=== PATIENT | female | born 1995 | race Caucasian/White ===

== ENCOUNTER 2024-05-22 00:14 | Day surgery (SDC) | payer BC ==
[2024-05-22 00:42] VITALS: BMI 31.7
[2024-05-22] MEDS ORDERED: hydrALAZINE 20 MG/ML VIAL SLOW IVP PRN (01:21)
[2024-05-22] MEDS: metroNIDAZOLE 500 MG TAB PO SCH (05:00)
== END 2024-05-22 05:03 | disposition home or self-care (01) ==
LOC: CSHLD/OP 00:14
PROVIDERS: ATTEND Advanced Practice Midwife
DX: O47.1 False labor at or after 37 completed weeks of gestation (principal); O23.593 Infection of other part of genital tract in pregnancy, third trimester; B96.89 Other specified bacterial agents as the cause of diseases classified elsewhere; Z79.899 Other long term (current) drug therapy; Z88.5 Allergy status to narcotic agent; Z3A.38 38 weeks gestation of pregnancy
CPT/HCPCS: 87480; 87510; 87660; 99284

== ENCOUNTER 2024-05-23 08:04 | Day surgery (SDC) | payer BC ==
[2024-05-23] MEDS ORDERED: hydrALAZINE 20 MG/ML VIAL SLOW IVP PRN (08:45)
[2024-05-23 14:49] VITALS: BMI 37.0
[2024-05-23] MEDS: Morphine 4 MG/ML VIAL IM SCH (15:15)
[2024-05-23] MEDS: Promethazine HCl 25 MG/ML VIAL IM PRN (15:16)
== END 2024-05-23 15:55 | disposition home or self-care (01) ==
LOC: CSHLD/OP 08:04
PROVIDERS: ATTEND Obstetrics & Gynecology
DX: O47.1 False labor at or after 37 completed weeks of gestation (principal); O46.93 Antepartum hemorrhage, unspecified, third trimester; O23.593 Infection of other part of genital tract in pregnancy, third trimester; B96.89 Other specified bacterial agents as the cause of diseases classified elsewhere; O99.013 Anemia complicating pregnancy, third trimester; Z79.899 Other long term (current) drug therapy; Z88.5 Allergy status to narcotic agent; Z3A.38 38 weeks gestation of pregnancy
CPT/HCPCS: J2272; J2550

== ENCOUNTER 2024-05-24 02:14 | Inpatient (IN) | payer BC ==
[2024-05-24] MEDS ORDERED: Promethazine HCl 25 MG/ML VIAL IM PRN (02:20)
[2024-05-24] MEDS ORDERED: Diphenoxylate HCl/Atropine Tablet PO PRN ×2 (02:20)
[2024-05-24] MEDS ORDERED: Carboprost 250 MCG/ML AMP IM PRN (02:20)
[2024-05-24] MEDS ORDERED: Methylergonovine 0.2 MG/ML VIAL IM PRN (02:20)
[2024-05-24] MEDS ORDERED: Ondansetron PF 4 MG/2 ML Vial IVP PRN (02:20)
[2024-05-24] MEDS ORDERED: Misoprostol 200 MCG TAB PR PRN (02:20)
[2024-05-24] MEDS ORDERED: Lidocaine 1% (PF) 30 ML VIAL SC PRN (02:20)
[2024-05-24] MEDS ORDERED: hydrALAZINE 20 MG/ML VIAL SLOW IVP PRN (02:20)
[2024-05-24] MEDS ORDERED: Tranexamic Acid 1,000 MG/10 ML VIAL IVP PRN (02:20)
[2024-05-24] MEDS ORDERED: Lactated Ringer's 1,000 ML IV SCH (02:30)
[2024-05-24] MEDS ORDERED: Oxytocin 30 units/NS 500 ML 500 ML IV SCH (02:30)
[2024-05-24 02:48] LABS: Hematocrit 42.8 % (34.9-44.5); Hemoglobin 14.2 g/dL (12.0-15.5); Mean Corpuscular HGB CONC 33.2 g/dL (32.0-36.0); Mean Corpuscular Hemoglobin 29.6 pg (27.0-33.0); Mean Corpuscular Volume 89.4 fL (81.6-98.3); Platelet Count 290 10x3/uL (150-450); RBC Distribution Width 16.6 % (11.5-14.5); Red Blood Cell (RBC) Count 4.79 10x6/uL (3.90-5.03); White Blood Cell (WBC) Count 23.8 10x3/uL (3.5-10.5)
[2024-05-24] MEDS: Lidocaine 1% (PF) 30 ML VIAL ONE (02:55)
[2024-05-24] MEDS: Oxytocin 30 units/NS 500 ML 500 ML ONE ×2 (03:00→04:48)
[2024-05-24 03:15] LABS: HBsAg Index 0.17 S/CO (0-0.99); Hep B Surf Ag - L&D Non-Reactive S/CO (NonReactive); Syphilis Antibody Nonreactive (Nonreactive); Syphilis Antibody Index 0.04 S/CO (<1.00 Non-Reactive)
[2024-05-24 04:36] VITALS: BMI 33.7
[2024-05-24] MEDS: Ibuprofen 800 MG TAB PO PRN (04:47)
[2024-05-24] MEDS ORDERED: Milk Of Magnesia 30 ML UDCUP PO PRN (07:34)
[2024-05-24] MEDS ORDERED: Boostrix 0.5 ML (Tdap) VIAL (>/=7 yrs of age) IM ONE (07:34)
[2024-05-24] MEDS ORDERED: Bisacodyl 10 MG SUPP PR PRN (07:34)
[2024-05-24] MEDS: Ferrous Sulfate 325 MG TAB PO SCH (08:49)
[2024-05-24] MEDS: Docusate 100 MG CAP PO PRN (09:14)
[2024-05-24] MEDS ORDERED: HYDROcodone/Acetaminophen 5/325 mg Tablet PO PRN (11:00)
[2024-05-24] MEDS ORDERED: Preparation H Ointment 28 GM TUBE TOP PRN (11:22)
[2024-05-24] MEDS: Acetaminophen 500 MG TAB PO PRN (12:20)
[2024-05-24] MEDS: Benzocaine-Menthol 82.5 ML CAN TOP PRN (12:22)
[2024-05-25] MEDS ORDERED: Witch Hazel 100 PAD JAR TOP PRN (08:01)
[2024-05-25] MEDS: Prenatal Vitamin 1 TAB PO SCH (08:22)
[2024-05-26 08:04] VITALS: BP 116/76; TEMP 98.3
== END 2024-05-26 15:43 | disposition home or self-care (01) | DRG 807 ==
LOC: CSHLD/OP 02:14 → CSHLD 02:30 → CSHPP 06:15
PROVIDERS: ADMIT Obstetrics & Gynecology; ATTEND Obstetrics & Gynecology
PROC: 10D07Z6 Extraction of Products of Conception, Vacuum, Via Natural or Artificial Opening (ICD-10-PCS; principal; 2024-05-24)
PROC: 0KQM0ZZ Repair Perineum Muscle, Open Approach (ICD-10-PCS; 2024-05-24)
DX: O42.02 Full-term premature rupture of membranes, onset of labor within 24 hours of rupture (principal); Z37.0 Single live birth; Z3A.38 38 weeks gestation of pregnancy; O70.1 Second degree perineal laceration during delivery; O64.8XX0 Obstructed labor due to other malposition and malpresentation, not applicable or unspecified; O76 Abnormality in fetal heart rate and rhythm complicating labor and delivery
CPT/HCPCS: 36415; 85027; 86780; 86850; 86900; 86901; 87340; J2590